=== PATIENT | male | born 1980 | race Caucasian/White ===

== ENCOUNTER 2017-05-02 10:26 | Emergency (ER) | payer OTHER ==
[~2017-05-02] VITALS: Ht 180.3 cm; Wt 102.1 kg
[2017-05-02] MEDS ORDERED: MELO7.5T12 PO (10:36)
[2017-05-02] MEDS ORDERED: [UNRECOGNIZED DRUG - REMARK] (10:36)
[2017-05-02] MEDS ORDERED: VALS1TAB2 PO (10:36)
--- NOTE | 2017-05-02 11:00 | NUR ---
Pt is not giving consent for blood alcohol draw, Dr Oneal notified.
--- NOTE | 2017-05-02 11:12 | NUR ---
Pt ambulated out of ER with steady gait, Dr Oneal aware.
== END 2017-05-02 11:14 | disposition left against medical advice (07) ==
LOC: ER 10:26
DX: I10 Essential (primary) hypertension (principal); F32.9 Major depressive disorder, single episode, unspecified; F41.9 Anxiety disorder, unspecified; F10.20 Alcohol dependence, uncomplicated
CPT/HCPCS: A4663